=== PATIENT | male | born 1935 | race Caucasian/White ===

== ENCOUNTER 2016-10-19 22:21 | Inpatient (IN) | payer MEDICARE, OTHER ==
[2016-10-19] MEDS ORDERED: SODIUM CHLORIDE 0.9% 500 ML IV STA (23:05)
[2016-10-19] MEDS ORDERED: SODIUM CHLORIDE 0.9% 1,000 ML IV STA (23:05)
[2016-10-19] MEDS ORDERED: ACETAMINOPHEN TAB 500 MG TAB PO STA (23:06)
--- NOTE | 2016-10-19 23:18 | ED ---
General Adult HPI - General Chief complaint: Back Pain/Injury Stated complaint: R Shoulder/Back Pain/SISSY Time Seen by Provider: 10/19/16 23:01 Source: patient, RN notes reviewed Mode of arrival: ambulatory - History of Present Illness Initial comments: Patient 80-year-old male who presents emergency room today with a chief complaint of right-sided back pain. He does admit that symptoms started yesterday. He states this started slowly but has gotten worse today. States is very sharp when he was laying down at home. States worse with deep breath. Patient states that he has had a mild cough. Does not feel that he's been very congested. Noticed that he had a temperature at home of 99F at home. States pain has improved since being here in the emergency room and currently does not want any medication for it. Currently rates pain 12/29. Denies any radiation. Patient denies any other complaints or symptoms at this time. Patient denies any recent fever, chills, chest pain, abdominal pain, nausea or vomiting, numbness or tingling, dysuria or hematuria, constipation or diarrhea, headaches or visual changes, or any other complaints. - Related Data Home Medications Medication Instructions Recorded Confirmed No Known Home Medications [No 10/19/16 10/19/16 Known Home Medications] Allergies Allergy/AdvReac Type Severity Reaction Status Date / Time No Known Allergies Allergy Verified 10/19/16 23:13 Review of Systems ROS Statement: Those systems with pertinent positive or pertinent negative responses have been documented in the HPI. ROS Other: All systems not noted in ROS Statement are negative. Past Medical History Past Medical History: Diabetes Mellitus, Hyperlipidemia, Hypertension, Osteoarthritis (OA), Pneumonia, Renal Disease Additional Past Medical History / Comment(s): bladder cancer, stage 4 kidney failure,exposure to agent orange , head injury January 2015 ladder came down on his head(laceration requiring stitches), cataracts,recent elevated potassium received tx to bring down History of Any Multi-Drug Resistant Organisms: None Reported Past Surgical History: Appendectomy, Hernia Repair, Orthopedic Surgery Additional Past Surgical History / Comment(s): Intravesical therapy for bladder cancer, left shoulder surgery for torn rotator cuff, erinn inguinal hernia,recent lumbar puncture negative for meningitis,Apr cystoscopy with attempted ureter visualization. Past Anesthesia/Blood Transfusion Reactions: No Reported Reaction Past Psychological History: No Psychological Hx Reported, PTSD Additional Psychological History / Comment(s): pt lives at home with ,is independant, retired from the served [employer] and [employer]. Smoking Status: Never smoker Past Alcohol Use History: None Reported Additional Past Alcohol Use History / Comment(s): Patient served in the [employer] and [employer] and serve to terms in [place]. He was exposed to agent orange and also was sent to [facility] to clean up the reactor leak. He has worked on the [employer] in the [place] and also [employer] and is currently retired. He lives with his who is wheelchair bound. There are no pets in the home. Past Drug Use History: None Reported - Past Family History Mother Family Medical History: Diabetes Mellitus, Deep Vein Thrombosis (DVT) Father History Unknown: Yes Additional Family Medical History / Comment(s): age 51 heavy drinker and smoker General Exam - General Exam Comments Initial Comments: General: The patient is awake and alert, in no distress, and does not appear acutely ill. Eye: Pupils are equal, round and reactive to light, extra-ocular movements are intact. No nystagmus. There is normal conjunctiva bilaterally. No signs of icterus. Ears, nose, mouth and throat: There are moist mucous membranes and no oral lesions. Neck: The neck is supple, there is no tenderness or JVD. Cardiovascular: There is a regular rate and rhythm. No murmur, rub or gallop is appreciated. Respiratory: Lungs are clear to auscultation, respirations are non-labored, breath sounds are equal. No wheezes, stridor, rales, or rhonchi. Gastrointestinal: Soft, non-distended, non-tender abdomen without masses or organomegaly noted. There is no rebound or guarding present. No CVA tenderness. Bowel sounds are unremarkable. Musculoskeletal: Normal ROM, no tenderness. Strength 5/5. Sensation intact. Pulses equal bilaterally 2+. Neurological: A&O x 3. CN II-XII intact, There are no obvious motor or sensory deficits. Coordination appears grossly intact. Speech is normal. Skin: Skin is warm and dry and no rashes or lesions are noted. Psychiatric: Cooperative, appropriate mood & affect, normal judgment. Course Vital Signs 10/19/16 22:36 Temperature 101.5 F H Pulse Rate 114 H Respiratory 22 Rate Blood Pressure 158/90 O2 Sat by Pulse 96 Oximetry EKG Findings - EKG Comments: EKG Findings:: EKG performed at00:00: Shows sinus tachycardia with first-degree AV block 101 beats per minute. NH interval 240. QRS 82. QT/QTC 344/446. No acute ST changes. Medical Decision Making - Medical Decision Making Patient labs been reviewed. Does show mildly elevated kidney function. Does have history of kidney disease. Patient's d-dimer elevated 3.6. Patient's chest x-ray reviewed does show evidence for possible pneumonia. Patient be started on antibiotics to cover for pneumonia. Patient given dose of Lovenox here admitted and scheduled for VQ scan in the morning. - Lab Data Result diagrams: 10/19/16 23:43 10/19/16 23:43 Lab Results 10/19/16 10/19/16 10/19/16 Range/Units 23:43 23:43 23:43 WBC 12.0 H (3.8-10.6) k/uL RBC 4.64 (4.30-5.90) m/uL Hgb 14.0 (13.0-17.5) gm/dL Hct 42.8 (39.0-53.0) % MCV 92.2 (80.0-100.0) fL MCH 30.3 (25.0-35.0) pg MCHC 32.8 (31.0-37.0) g/dL RDW 13.8 (11.5-15.5) % Plt Count 182 (150-450) k/uL Neutrophils % 84 % Lymphocytes % 9 % Monocytes % 5 % Eosinophils % 0 % Basophils % 1 % Neutrophils # 10.1 H (1.3-7.7) k/uL Lymphocytes # 1.0 (1.0-4.8) k/uL Monocytes # 0.6 (0-1.0) k/uL Eosinophils # 0.1 (0-0.7) k/uL Basophils # 0.1 (0-0.2) k/uL PT (9.0-12.0) sec INR (<1.1) APTT (22.0-30.0) sec D-Dimer (<0.60) mg/L FEU Sodium 141 (137-145) mmol/L Potassium 4.5 (3.5-5.1) mmol/L Chloride 104 (98-107) mmol/L Carbon Dioxide 23 (22-30) mmol/L Anion Gap 14 mmol/L BUN 47 H (9-20) mg/dL Creatinine 2.28 H (0.66-1.25) mg/dL Est GFR (MDRD) Af Amer 34 (>60 ml/min/1.73 sqM) Est GFR (MDRD) Non-Af 28 (>60 ml/min/1.73 sqM) Glucose 143 H (74-99) mg/dL Calcium 9.7 (8.4-10.2) mg/dL Magnesium 1.7 (1.6-2.3) mg/dL Total Bilirubin 0.7 (0.2-1.3) mg/dL AST 23 (17-59) U/L ALT 24 (21-72) U/L Alkaline Phosphatase 116 (38-126) U/L Total Creatine Kinase 124 (55-170) U/L CK-MB (CK-2) 2.0 (0.0-2.4) ng/mL CK-MB (CK-2) Rel Index 1.6 Troponin I <0.012 (0.000-0.034) ng/mL Total Protein 7.8 (6.3-8.2) g/dL Albumin 4.4 (3.5-5.0) g/dL 10/19/16 Range/Units 23:43 WBC (3.8-10.6) k/uL RBC (4.30-5.90) m/uL Hgb (13.0-17.5) gm/dL Hct (39.0-53.0) % MCV (80.0-100.0) fL MCH (25.0-35.0) pg MCHC (31.0-37.0) g/dL RDW (11.5-15.5) % Plt Count (150-450) k/uL Neutrophils % % Lymphocytes % % Monocytes % % Eosinophils % % Basophils % % Neutrophils # (1.3-7.7) k/uL Lymphocytes # (1.0-4.8) k/uL Monocytes # (0-1.0) k/uL Eosinophils # (0-0.7) k/uL Basophils # (0-0.2) k/uL PT 10.4 (9.0-12.0) sec INR 1.0 (<1.1) APTT 18.2 L (22.0-30.0) sec D-Dimer 3.66 H (<0.60) mg/L FEU Sodium (137-145) mmol/L Potassium (3.5-5.1) mmol/L Chloride (98-107) mmol/L Carbon Dioxide (22-30) mmol/L Anion Gap mmol/L BUN (9-20) mg/dL Creatinine (0.66-1.25) mg/dL Est GFR (MDRD) Af Amer (>60 ml/min/1.73 sqM) Est GFR (MDRD) Non-Af (>60 ml/min/1.73 sqM) Glucose (74-99) mg/dL Calcium (8.4-10.2) mg/dL Magnesium (1.6-2.3) mg/dL Total Bilirubin (0.2-1.3) mg/dL AST (17-59) U/L ALT (21-72) U/L Alkaline Phosphatase (38-126) U/L Total Creatine Kinase (55-170) U/L CK-MB (CK-2) (0.0-2.4) ng/mL CK-MB (CK-2) Rel Index Troponin I (0.000-0.034) ng/mL Total Protein (6.3-8.2) g/dL Albumin (3.5-5.0) g/dL Disposition Clinical Impression: Community acquired pneumonia Disposition: ADMITTED IP TO THIS HOSP Condition: Good Referrals: Jos Ovalle MD [Primary Care Provider] - 1-2 days Time of Disposition: 01:01
[2016-10-19 23:55] LABS: Basophils # (A) 0.1 k/uL (0-0.2); Basophils % (A) 1 %; CH 31.1; CHCM 33.9; Eosinophils # (A) 0.1 k/uL (0-0.7); Eosinophils % (A) 0 %; HCT 42.8 % (39.0-53.0); HDW 2.63; Luc # (Auto) 0.16; Luc % (Auto) 1; Lymphocytes % (A) 9 %; MCH 30.3 pg (25.0-35.0); MCHC 32.8 g/dL (31.0-37.0); MCV 92.2 fL (80.0-100.0); Mean Platelet Volume 7.4; Monocytes # (A) 0.6 k/uL (0-1.0); Monocytes % (A) 5 %; Neutrophils # (A) 10.1 k/uL (1.3-7.7); Neutrophils % (A) 84 %; RBC 4.64 m/uL (4.30-5.90); RDW 13.8 % (11.5-15.5); WBC (Perox) 12.21
--- NOTE | 2016-10-19 23:59 | XR ---
EXAM: XR Chest, 2 Views. CLINICAL HISTORY: Reason: mid thoracic back pain with no injury and SOB increasing over 2 days, also fever and non productive cough TECHNIQUE: Frontal and lateral views of the chest. COMPARISON: Chest radiograph on 04/26/2015 FINDINGS: Hardware: None. Lungs/pleura: Low lung volumes with bibasilar atelectasis. No focal consolidation. No pleural effusion or pneumothorax. Heart/mediastinum: Normal. No cardiomegaly. Soft tissues: Unremarkable. Bones: Degenerative changes of the spine and left acromioclavicular joint. No acute fracture. Upper abdomen: Normal. IMPRESSION: Low lung volumes with favor bibasilar atelectasis. Pneumonia not entirely excluded in the appropriate clinical setting.
[2016-10-20 00:05] LABS: Calcium 9.7 mg/dL (8.4-10.2); Magnesium 1.7 mg/dL (1.6-2.3); Potassium 4.5 mmol/L (3.5-5.1); Total Bilirubin 0.7 mg/dL (0.2-1.3); Total Protein 7.8 g/dL (6.3-8.2)
[2016-10-20 00:21] LABS: Creatine Kinase 124 U/L (55-170)
[2016-10-20 00:26] LABS: Prothrombin Time 10.4 sec (9.0-12.0)
[2016-10-20 00:28] LABS: Partial Thromboplastin Time 18.2 sec (22.0-30.0)
[2016-10-20 00:33] LABS: Troponin I <0.012 ng/mL (0.000-0.034)
[2016-10-20] MEDS ORDERED: AZITHROMYCIN 500 MG in SODIUM CHLORIDE 0.9% 250 ML IVPB STA (01:02)
[2016-10-20] MEDS ORDERED: ENOXAPARIN 80 MG/0.8 ML SYRINGE SQ STA (01:02)
[2016-10-20] MEDS ORDERED: ONDANSETRON 4 MG/2 ML VIAL IVP PRN (01:03)
[2016-10-20] MEDS ORDERED: ACETAMINOPHEN TAB 325 MG TAB PO PRN (01:03)
[2016-10-20] MEDS ORDERED: SODIUM CHLORIDE 0.9% 1,000 ML IV ONE (01:03)
[2016-10-20] MEDS ORDERED: NALOXONE 0.4 MG/ML 1 ML VIAL IV PRN (01:03)
[2016-10-20 04:35] VITALS: BMI 25.8
[2016-10-20 09:03] LABS: Glucose,Whole Blood 131 mg/dL (75-99)
--- NOTE | 2016-10-20 09:12 | NM ---
EXAMINATION TYPE: NM pul vent and perfuse DATE OF EXAM: 10/20/2016 9:01 AM COMPARISON: NONE HISTORY: Elevated d-dimer TECHNIQUE: Utilizing inhalation of 71.5 mCi Tc 99m DTPA aerosol and intravenous injection of 5.4 mCi of Tc 99m MAA, ventilation and perfusion images are acquired post injection in multiple projections. FINDINGS: There are no VQ mismatches. IMPRESSION: THIS EXAMINATION IS LOW PROBABILITY FOR PULMONARY EMBOLUS.
[2016-10-20] MEDS ORDERED: TEMAZEPAM 15 MG CAP PO PRN (10:45)
[2016-10-20] MEDS ORDERED: HYDROmorphone 1 MG/ML 1 ML SYRINGE IVP PRN (10:45)
[2016-10-20] MEDS ORDERED: HYDROcodone/APAP 5-325MG 1 EACH TAB PO PRN (10:45)
--- NOTE | 2016-10-20 11:42 | P.CNPUL ---
History of Present Illness Consult date: 10/20/16 Reason for consult: chest pain, other Chief complaint: Pleurisy History of present illness: 80-year-old male who presents to the emergency department complaining of right- sided chest and back pain. The pain is sharp in nature. It's gotten worse over the last couple of days or so. It is worse with deep breathing body movements coughing sneezing. The patient states that with taking a deep breath , he really feels the pain significantly. Apparently had a low-grade temperature. Chest x-ray my opinion shows low lung volumes probably from not taking a deep breath. No jose infiltrates or consolidation noted. For some reason a VQ scan was done and it was low probability. This likely represents viral pleurisy. Anyway the patient feels a bit better today than he did yesterday. No nausea vomiting or diarrhea. Not coughing. Not bringing up any phlegm. Review of Systems A 12 point review of system is positive for chest pain. It's sharp and pleuritic in nature. His sore throat deep be breathing body movements coughing or sneezing. Also slight temperature. All in all I think this is probably viral pleurisy likely caused by coxsackie B infection. Past Medical History Past Medical History: Diabetes Mellitus, Hyperlipidemia, Hypertension, Osteoarthritis (OA), Pneumonia, Renal Disease Additional Past Medical History / Comment(s): bladder cancer, stage 4 kidney failure,exposure to agent orange , head injury January 2015 ladder came down on his head(laceration requiring stitches), cataracts History of Any Multi-Drug Resistant Organisms: None Reported Past Surgical History: Appendectomy, Hernia Repair, Orthopedic Surgery Additional Past Surgical History / Comment(s): Intravesical therapy for bladder cancer, left shoulder surgery for torn rotator cuff, erinn inguinal hernia,recent lumbar puncture negative for meningitis,Apr cystoscopy with attempted ureter visualization. Past Anesthesia/Blood Transfusion Reactions: No Reported Reaction Past Psychological History: No Psychological Hx Reported, PTSD Additional Psychological History / Comment(s): pt lives at home with ,is independant, retired from the served [employer] and [employer]. Smoking Status: Never smoker Past Alcohol Use History: None Reported Additional Past Alcohol Use History / Comment(s): Patient served in the [employer], [employer] and [employer] and serve to terms in [place]. He was exposed to agent orange and also was [facility]. He has worked on the [email or web address] in the [place] and also [employer] and is currently retired. He lives with his who is wheelchair bound. There are no pets in the home. Past Drug Use History: None Reported - Past Family History Mother Family Medical History: Diabetes Mellitus, Deep Vein Thrombosis (DVT) Father History Unknown: Yes Additional Family Medical History / Comment(s): age 51 heavy drinker and smoker Medications and Allergies Home Medications Medication Instructions Recorded Confirmed Type Atorvastatin [Lipitor] 20 mg PO DAILY 10/20/16 10/20/16 History Lisinopril [Zestril] 10 mg PO DAILY 10/20/16 10/20/16 History glipiZIDE [Glucotrol] 10 mg PO AC-BID 10/20/16 10/20/16 History Allergies Allergy/AdvReac Type Severity Reaction Status Date / Time No Known Allergies Allergy Verified 10/19/16 23:13 Physical Exam Osteopathic Statement: *. No significant issues noted on an osteopathic structural exam other than those noted in the History and Physical/Consult. Vitals: Vital Signs Temp Pulse Pulse Resp BP BP Pulse Ox 10/20/16 07:00 98.7 F 80 16 137/69 95 10/20/16 02:03 96.5 F L 89 16 158/85 96 10/20/16 01:16 99.9 F H 97 18 149/89 94 L Intake and Output 10/19/16 10/20/16 10/20/16 22:59 06:59 14:59 Intake Total 300 Balance 300 Intake: Intake, IV Titration 300 Amount Sodium Chloride 0.9% 1, 300 000 ml @ 50 mls/hr IV . Q20H ONE Rx#:[id number] Other: Voiding Method Toilet # Voids 1 Weight 72.575 kg No acute distress, oriented 3. No respiratory difficulty. HEENT examination is grossly unremarkable. Mucous membranes are moist. No oral lesions. Neck supple. Full range of motion. No adenopathy. Cardiovascular examination reveals regular rhythm rate. S1 and S2 normal. Lungs reveal relatively clear breath sounds. I do not hear a pleural friction rub. He does not really take deep breaths. No adventitious lung sounds noted. Breath sounds are equal bilaterally. Abdomen soft bowel sounds are heard. Extremities are intact. Results - Laboratory Findings CBC and BMP: 10/19/16 23:43 10/19/16 23:43 PT/INR, D-dimer PT 10.4 sec (9.0-12.0) 10/19/16 23:43 INR 1.0 (<1.1) 10/19/16 23:43 D-Dimer 3.66 mg/L FEU (<0.60) H 10/19/16 23:43 Abnormal lab findings: Abnormal Labs 10/20/16 09:01 POC Glucose (mg/dL) 131 H - Diagnostic Findings Chest x-ray: image reviewed (The x-ray labs medications and VQ scan are all reviewed. The patient was evaluated in the history was taken.) Assessment and Plan (1) Viral pleurisy Status: Acute (2) Coxsackie virus infection Status: Acute (3) Fever Status: Acute Plan: Plan The patient likely has a viral pleurisy. Typically this time with the nurse called by a coxsackie B infection. His prodrome including fever and shortness of breath worse with deep breathing coughing sneezing and body movements especially the fact it is pleuritic in nature very sharp as all consistent with this diagnosis. We'll treat with nonsteroidal anti-inflammatory drugs as well as steroids. I do not believe he has a bacterial infection. If he chooses to use antibiotics have go with a short course of oral antibiotics. Additional recommendations suggestions are forthcoming. Prognosis is good. The patient actually could be discharged. No additional recommendations are made. We will follow. Time with Patient: Greater than 30
[2016-10-20 11:47] LABS: Glucose,Whole Blood 130 mg/dL (75-99)
[2016-10-20 12:47] LABS: Hemoglobin A1C 7.4 % (4.2-6.1)
[2016-10-20] MEDS: INSULIN LISPRO (humaLOG) 300 UNIT/3 ML VIAL SQ SCH ×4 (13:02→20:10)
[2016-10-20] MEDS: methylPREDNISolone SOD SUCCI 125 MG/2 ML VIAL IV SCH ×3 (13:02→23:27)
[2016-10-20] MEDS: LEVALBUTEROL NEB 1.25 MG/3 ML AMP INHALATION SCH ×2 (13:04→19:51)
--- NOTE | 2016-10-20 13:32 | CT ---
EXAMINATION TYPE: CT chest wo con DATE OF EXAM: 10/20/2016 12:42 PM COMPARISON: Previous study dated 04/27/2015. HISTORY: Dyspnea CT DLP: 310.2 mGycm Automated exposure control for dose reduction was used. FINDINGS: There is atelectasis and bibasilar airspace disease, worse on the right than the left. There is no significant axillary, mediastinal or hilar adenopathy. The heart is not enlarged. There is minimal dilatation of the aortic root which measures 3.8 cm. The proximal arch measures 3.7 cm. The proximal descending thoracic aorta measures 3.2 cm. At the level of the aortic hiatus at the aorta is normal in size measuring 2.6 cm. Visualized portions of the upper abdomen show no visceral abnormality. There are scattered diverticul a within the colon. There is mild hypertrophic spondylosis within the spine. IMPRESSION: 1. BIBASILAR ATELECTASIS AND AIRSPACE DISEASE, WORSE ON THE RIGHT THAN THE LEFT. 2. THORACIC AORTIC ANEURYSM. 3. UNCOMPLICATED DIVERTICULOSIS OF THE COLON.
[2016-10-20 17:05] LABS: Glucose,Whole Blood 236 mg/dL (75-99)
[2016-10-20] MEDS: glipiZIDE 10 MG TAB PO SCH (17:22)
[2016-10-20 20:09] LABS: Glucose,Whole Blood 259 mg/dL (75-99)
--- NOTE | 2016-10-20 20:52 | HP ---
DATE OF ADMISSION: 10/20/2016 CHIEF COMPLAINT: Right shoulder pain. HISTORY OF PRESENT ILLNESS: This 80-year-old gentleman with a past medical history of multiple medical problems including diabetes, hypertension, hyperlipidemia, DJD, pneumonia, history of bladder cancer stage IV, history of appendectomy, hernia repair, being followed by Dr. Ovalle in the outpatient setting, is complaining of right shoulder pain. The patient also reported the pain is sharp in character, which is increased with respirations occasionally and worse today. The patient came to [facility] and was admitted for further evaluation and treatment. The patient had a chest CT scan done today, which showed bibasilar atelectasis and air space disease, possibly pneumonia, worse on right, and thoracic aortic aneurysm, uncomplicated, and diverticulosis of the colon. There is no history of fevers or rigors. No history of headache, loss of consciousness or seizures. The patient is being evaluated for the same. PAST MEDICAL HISTORY: History of diabetes, hypertension, hyperlipidemia, DJD, history of bladder cancer, history of PTSD. Medications prior to admission include: 1. Glucotrol 10 mg with meals b.i.d. 2. Lipitor 20 mg daily. 3. Zestril 10 mg daily. ALLERGIES: None. FAMILY HISTORY: History of diabetes, history of deep venous thrombosis. SOCIAL HISTORY: No history of smoking, no history of alcohol intake. REVIEW OF SYSTEMS: ENT: Diminishing hearing. Diminished vision. CARDIOVASCULAR: S1 and S2 muffled. GI: As mentioned. : No dysuria. NERVOUS SYSTEM: No deficits. PSYCHIATRY: As mentioned earlier. MUSCULOSKELETAL: As mentioned. HEMATOLOGIC/ONCOLOGIC: As mentioned. DERMATOLOGIC: Negative. PHYSICAL EXAM: At this time the patient is alert and oriented at x3. Pulse 105, blood pressure 140/70, respirations 16, temperature 99.2, pulse 92% on room air. HEENT: Conjunctivae normal. Oral mucosa moist. NECK: No JVD. No carotid bruits. CARDIOVASCULAR: S1 and S2 muffled. LUNGS: Breath sounds are diminished at the bases. Bilateral scattered rhonchi and crackles and expiratory wheezing also heard. Crackles are more on the right side and some pleural rub also heard. ABDOMEN: Soft, nontender. No masses palpable. LEGS: No edema, no swelling, NERVOUS SYSTEM: Higher functions as mentioned. Moves all extremities. LYMPHATICS: No lymph nodes palpable in the neck, axillae or groin. SKIN: No rashes. LABS: WBC 12, D-dimer 3.66. Creatinine is 2.28. Other labs are noted. V/Q scan is low probability. Chest x-ray, bibasilar pneumonia. ASSESSMENT: 1. Bibasilar pneumonia, right more than left, with severe right pleurisy with severe right shoulder pain. 2. Increased WBC. 3. Increased D-dimer without any evidence of pulmonary embolism. 4. Increased creatinine with possible acute on chronic kidney disease. 5. Diabetes mellitus type 2. 6. Hypertension. 7. Hyperlipidemia. 8. History of degenerative joint disease. 9. History of pneumonia, history of bladder cancer. 10. History of stage IV kidney failure. 11. Exposure to agent orange. 12. History of head injury. 13. History of degenerative joint disease. 14. History of intravesical therapy for bladder cancer. 15. History of posttraumatic stress disorder. 16. FULL CODE. RECOMMENDATIONS: This 80-year-old gentleman who presented with multiple complex medical issues, we will monitor the patient closely. Continue the current medications. Continue symptomatic treatment. Otherwise, at this time I would recommend continue with broad-spectrum IV antibiotics, bronchodilators, pulmonary consultation. Also recommend consultation with Nephrology regarding renal failure. Prognosis guarded because of multiple complex medical issues. Discussed with the patient and the family at the bedside. CT scan as noted. Further recommendations to follow.
[2016-10-21] MEDS: AZITHROMYCIN 500 MG in SODIUM CHLORIDE 0.9% 250 ML IVPB SCH (02:18)
[2016-10-21] MEDS: methylPREDNISolone SOD SUCCI 125 MG/2 ML VIAL IV SCH ×2 (05:38→12:11)
[2016-10-21] MEDS: LEVALBUTEROL NEB 1.25 MG/3 ML AMP INHALATION SCH ×3 (07:09→19:16)
[2016-10-21 07:20] LABS: Glucose,Whole Blood 261 mg/dL (75-99)
[2016-10-21] MEDS: glipiZIDE 10 MG TAB PO SCH ×2 (07:55→17:52)
[2016-10-21] MEDS: ATORVASTATIN 20 MG TAB PO SCH (07:55)
[2016-10-21] MEDS: LISINOPRIL 10 MG TAB PO SCH (07:55)
[2016-10-21 07:56] LABS: Basophils % (A) 0 %; CH 30.8; CHCM 33.2; Eosinophils % (A) 0 %; HCT 37.2 % (39.0-53.0); HDW 2.56; HGB 12.3 gm/dL (13.0-17.5); Luc # (Auto) 0.09; Luc % (Auto) 1; Lymphocytes # (A) 1.1 k/uL (1.0-4.8); Lymphocytes % (A) 7 %; MCH 30.7 pg (25.0-35.0); Mean Platelet Volume 6.9; Monocytes # (A) 0.5 k/uL (0-1.0); Monocytes % (A) 3 %; Neutrophils # (A) 13.8 k/uL (1.3-7.7); Neutrophils % (A) 89 %; RDW 13.6 % (11.5-15.5); WBC 15.5 k/uL (3.8-10.6)
[2016-10-21] MEDS: INSULIN LISPRO (humaLOG) 300 UNIT/3 ML VIAL SQ SCH ×4 (07:56→20:03)
[2016-10-21 08:01] LABS: Calcium 8.8 mg/dL (8.4-10.2); Potassium 3.9 mmol/L (3.5-5.1); Total Bilirubin 0.5 mg/dL (0.2-1.3); Total Protein 6.6 g/dL (6.3-8.2)
--- NOTE | 2016-10-21 10:21 | P.NPCON ---
History of Present Illness - Reason for Consult chronic renal failure - History of Present Illness Reason for consultation: Chronic kidney disease stage History of present illness: Patient is a 80-year-old male seen in renal consultation for chronic kidney disease. 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 Creatinine was 2.28 on admission yesterday and is 2.1 today. Patient presented to hospital with dyspnea. He also complained of pleuritic chest pain that started last . He is currently maintained on IV steroids as well as antibiotics and symptoms have significantly improved. He denies any active chest pain or shortness of breath. Denies any vomiting or diarrhea. Appetite is good. Denies use of NSAIDs. Admits to good urine output. No hematuria or dysuria. Denies any headache or dizziness. Hemodynamically stable. He does have a sister who also has chronic kidney disease but is unsure of the etiology. Vital signs are stable. General: The patient appeared well nourished and normally developed. HEENT: Head exam is unremarkable. Neck is without jugular venous distension. LUNGS: Lungs are clear to auscultation and percussion. Breath sounds decreased. HEART: Rate and Rhythm are regular. First and second heart sounds normal. No murmurs, rubs or gallops. ABDOMEN: Abdominal exam reveals normal bowel sounds. Non-tender and non- distended. No evidence of peritonitis. EXTREMITITES: No clubbing, cyanosis, or edema. Past Medical History Past Medical History: Diabetes Mellitus, Hyperlipidemia, Hypertension, Osteoarthritis (OA), Pneumonia, Renal Disease Additional Past Medical History / Comment(s): bladder cancer, stage 4 kidney failure,exposure to agent orange , head injury January 2015 ladder came down on his head(laceration requiring stitches), cataracts History of Any Multi-Drug Resistant Organisms: None Reported Past Surgical History: Appendectomy, Hernia Repair, Orthopedic Surgery Additional Past Surgical History / Comment(s): Intravesical therapy for bladder cancer, left shoulder surgery for torn rotator cuff, erinn inguinal hernia,recent lumbar puncture negative for meningitis,Apr cystoscopy with attempted ureter visualization. 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 Smoking Status: Never smoker Past Alcohol Use History: None Reported Additional Past Alcohol Use History / Comment(s): Patient served in the [employer], [employer] and [employer] and serve to terms in [place]. He was exposed to agent orange and also was sent to [facility] to clean up the reactor leak. He has worked on the [employer] in the [employer] and also [employer] and is currently retired. He lives with his who is wheelchair bound. There are no pets in the home. Past Drug Use History: None Reported - Past Family History Mother Family Medical History: Diabetes Mellitus, Deep Vein Thrombosis (DVT) Father History Unknown: Yes Additional Family Medical History / Comment(s): age 51 heavy drinker and smoker Medications and Allergies Home Medications Medication Instructions Recorded Confirmed Type Atorvastatin [Lipitor] 20 mg PO DAILY 10/20/16 10/20/16 History Lisinopril [Zestril] 10 mg PO DAILY 10/20/16 10/20/16 History glipiZIDE [Glucotrol] 10 mg PO AC-BID 10/20/16 10/20/16 History Allergies Allergy/AdvReac Type Severity Reaction Status Date / Time No Known Allergies Allergy Verified 10/19/16 23:13 Physical Exam Vitals: Vital Signs Temp Pulse Pulse Resp BP Pulse Ox 10/21/16 07:18 84 10/21/16 07:10 84 10/21/16 07:00 97.2 F L 80 16 125/71 92 L 10/21/16 00:00 16 10/20/16 22:41 98.8 F 98 16 133/65 96 10/20/16 20:19 74 10/20/16 19:53 74 10/20/16 15:00 99.3 F 105 H 16 145/72 92 L 10/20/16 13:06 80 Intake and Output 10/20/16 10/21/16 10/21/16 22:59 06:59 14:59 Intake Total 1540 620 Balance 1540 620 Intake: Intake, IV Titration 380 Amount Azithromycin 500 mg In 250 Sodium Chloride 0.9% 250 ml @ 125 mls/hr IVPB Q24H [facility] Rx#:[id number] Sodium Chloride 0.9% 1, 80 000 ml @ 50 mls/hr IV . Q20H [facility] Rx#:[id number] cefTRIAXone 1,000 mg In 50 Sodium Chloride 0.9% 50 ml @ 100 mls/hr IVPB Q24H [facility] Rx#:[id number] Oral 1540 240 Other: Voiding Method Toilet Toilet Toilet # Voids 2 1 Results - Lab Results Most recent lab results Calcium 8.8 mg/dL (8.4-10.2) 10/21/16 07:20 Magnesium 1.7 mg/dL (1.6-2.3) 10/19/16 23:43 10/21/16 07:20 10/21/16 07:20 Assessment and Plan Plan: Assessment: #1. Chronic kidney disease stage IIIB/4 secondary to nephrosclerosis. Baseline creatinine in the range of 2.1-2.3. GFR is at baseline. #2. Dyspnea secondary to viral pleurisy. Improved. #3. Hypertension with chronic kidney disease. Controlled. #4. Type 2 diabetes mellitus. Plan: Continue current treatment. Avoid nephrotoxic agents and hypotensive episodes. He is off IV fluids and oral intake is good. Stable to be discharged home from nephrology standpoint. Thank you for the consultation. I will continue to follow the patient with you during his hospital stay.
--- NOTE | 2016-10-21 11:35 | P.PN ---
Subjective Progress note dated 10/21/2016 80-year-old male who was seen in consultation with right-sided chest pain, which is clearly pleuritic in nature. The patient wished the pain was sharp. It was worse with deep breathing coughing or body movements. It's a bit better today. Chest x-ray shows some atelectasis and/or minimal infiltrate. VQ scan was low probability. Anyway the patient is clinically improved. We did recommend a combination of steroids and nonsteroid anti-inflammatory drugs. Objective - Vital Signs Vital signs: Vital Signs Temp 97.2 F L 10/21/16 07:00 Pulse 84 10/21/16 07:18 Resp 16 10/21/16 07:00 BP 125/71 10/21/16 07:00 Pulse Ox 92 L 10/21/16 07:00 Intake & Output 10/20/16 10/21/16 10/21/16 18:59 06:59 18:59 Intake Total 2160 Balance 2160 Intake: Intake, IV Titration 380 Amount Azithromycin 500 mg In 250 Sodium Chloride 0.9% 250 ml @ 125 mls/hr IVPB Q24H [facility] Rx#:[id number] Sodium Chloride 0.9% 1, 80 000 ml @ 50 mls/hr IV . Q20H [facility] Rx#:[id number] cefTRIAXone 1,000 mg In 50 Sodium Chloride 0.9% 50 ml @ 100 mls/hr IVPB Q24H [facility] Rx#:[id number] Oral 1780 Other: Voiding Method Toilet Toilet Toilet # Voids 2 1 - Exam No acute distress, oriented 3. HEENT examination is grossly unremarkable. Mucous membranes are moist. Neck supple. Full range of motion. No adenopathy. Cardiovascular examination reveals regular rhythm rate. S1 and S2 normal. No S3-S4 or murmur. Lungs are examined. No pleural friction rub. No adventitious lung sounds. No wheezes rhonchi or crackles. Breath sounds are equal bilaterally. Abdomen soft bowel sounds are heard. Extremities are intact. - Labs CBC & Chem 7: 10/21/16 07:20 10/21/16 07:20 Labs: Abnormal Lab Results - Last 24 Hours (Table) 10/20/16 10/20/16 10/20/16 Range/Units 11:38 16:58 19:56 WBC (3.8-10.6) k/uL RBC (4.30-5.90) m/uL Hgb (13.0-17.5) gm/dL Hct (39.0-53.0) % Neutrophils # (1.3-7.7) k/uL Chloride (98-107) mmol/L Carbon Dioxide (22-30) mmol/L BUN (9-20) mg/dL Creatinine (0.66-1.25) mg/dL Glucose (74-99) mg/dL POC Glucose (mg/dL) 130 H 236 H 259 H (75-99) mg/dL ALT (21-72) U/L 10/21/16 10/21/16 10/21/16 Range/Units 07:07 07:20 07:20 WBC 15.5 H (3.8-10.6) k/uL RBC 4.00 L (4.30-5.90) m/uL Hgb 12.3 L (13.0-17.5) gm/dL Hct 37.2 L (39.0-53.0) % Neutrophils # 13.8 H (1.3-7.7) k/uL Chloride 109 H (98-107) mmol/L Carbon Dioxide 21 L (22-30) mmol/L BUN 41 H (9-20) mg/dL Creatinine 2.11 H (0.66-1.25) mg/dL Glucose 250 H (74-99) mg/dL POC Glucose (mg/dL) 261 H (75-99) mg/dL ALT 19 L (21-72) U/L Microbiology - Last 24 Hours (Table) 10/20/16 01:10 Blood Culture - Preliminary Blood No Growth after 24 hours Assessment and Plan (1) Viral pleurisy Status: Acute (2) Coxsackie virus infection Status: Acute (3) Fever Status: Acute Plan: Plan The patient likely has a viral pleurisy. Typically this time with the nurse called by a coxsackie B infection. His prodrome including fever and shortness of breath worse with deep breathing coughing sneezing and body movements especially the fact it is pleuritic in nature very sharp as all consistent with this diagnosis. We'll treat with nonsteroidal anti-inflammatory drugs as well as steroids. I do not believe he has a bacterial infection. If he chooses to use antibiotics have go with a short course of oral antibiotics. Additional recommendations suggestions are forthcoming. Prognosis is good. The patient actually could be discharged. No additional recommendations are made. We will follow. Plan dated 10/21/2016 the patient seemed be doing clinically better. We'll continue to follow. Medications were adjusted yesterday. The pain has significantly improved. No additional recommendations are made. Time with Patient: Less than 30
[2016-10-21 11:43] LABS: Glucose,Whole Blood 298 mg/dL (75-99)
[2016-10-21 17:14] LABS: Glucose,Whole Blood 338 mg/dL (75-99)
--- NOTE | 2016-10-21 17:27 | PN ---
DATE OF SERVICE: 10/21/2016 This 80-year-old gentleman admitted with right posterior back pain, also had possible pneumonia and as well as severe pleurisy. Patient had symptomatic treatment. Patient improved significantly. Patient also had renal failure, which is being closely monitored, creatinine is 2.11 at this time. Multiple consultants are following the patient closely. is still elevated. PAST MEDICAL HISTORY: Reviewed. REVIEW OF SYSTEMS: CARDIOVASCULAR: No angina or palpitation. RESPIRATORY: As mentioned earlier. GI: As mentioned earlier. : No dysuria. NERVOUS SYSTEM: No numbness or weakness. Current medications are reviewed and include: 1. Tylenol 650 q.6. 2. [place] 5 mg q.6. 3. Lipitor 20 mg daily. 4. Azithromycin 500 mg daily. 6. Glucotrol 10 mg daily. 7. Dilaudid. 8. Humalog. 9. Xopenex. 10. Zestril. 11. Solu-Medrol 60 IV q.6. 12. Narcan. 13. Zofran. 14. Restoril. PHYSICAL EXAM: Patient is alert and oriented x3. The pulse is 80, blood pressure 125/71, respirations 16, temperature is 97.2, pulse ox 98% on room air. HEENT: Conjunctivae normal. NECK: No jugular venous distension. CARDIOVASCULAR SYSTEM: S1, S2, muffled. RESPIRATORY: Breath sounds diminished at the bases, scattered rhonchi, no crackles. Abdomen is soft, nontender. EXTREMITIES: Legs no edema, no swelling. NERVOUS SYSTEM: No focal deficits. LABS: Accu-Cheks 250, creatinine is 2.11, WBC is 15.5 and hemoglobin is 12.3. ASSESSMENT: 1. Bibasilar pneumonia, right more than left with severe right pleurisy with right shoulder pain. 2. Increased WBC. 3. Increased d-dimer without any evidence of pulmonary embolism. 4. Increased arielle with possibly acute on chronic kidney disease. 5. Diabetes mellitus type 2. 6. Hypertension, essential. 7. Hyperlipidemia. 8. History of degenerative joint disease. 9. History of pneumonia. 10. History of bladder cancer. 11. History of stage IV kidney failure. 12. Exposure to agent orange. 13. History of head injury. 14. History of degenerative joint disease. 15. History of intravascular therapy for BCG with bladder cancer. 16. History of posttraumatic stress disorder. 17. FULL CODE. RECOMMENDATION: In this 80-year-old gentleman who presented with multiple complex medical issues, will monitor the patient closely. Continue with the current medications. Continue with the symptomatic treatment. Otherwise, continue with intensive bronchodilators. Increase ambulation. Guarded prognosis. Further recommendations to follow. Closely follow with Dr. Basilio. ROMINA
[2016-10-21] MEDS: methylPREDNISolone SOD SUCCI 40 MG/ML 1 ML VIAL IV SCH ×2 (17:52→23:57)
[2016-10-21 20:00] LABS: Glucose,Whole Blood 371 mg/dL (75-99)
[2016-10-21 22:45] LABS: Glucose,Whole Blood 411 mg/dL (75-99)
[2016-10-21] MEDS ORDERED: INSULIN REGULAR 100 UNIT/ML VIAL IV ONE (23:06)
[2016-10-21] MEDS ORDERED: INSULIN DETEMIR 100 UNIT/ML 10 ML VIAL SQ STA (23:12)
[2016-10-21] MEDS ORDERED: INSULIN REGULAR 100 UNIT/ML VIAL SQ ONE (23:14)
[2016-10-21 23:55] LABS: Appearance,Urine Clear (Clear); Bilirubin,Urine Negative (Negative); Glucose,Urine (UA) 4+ (Negative); Ketones,Urine Negative (Negative); Leukocyte Esterase,Urine Negative (Negative); Mucus,Urine Rare /hpf; Nitrite,Urine Negative (Negative); Particle Count 1286; Protein,Urine Trace (Negative); Specific Gravity,Urine 1.016 (1.001-1.035); UA Billing (MACRO vs. MICRO) MICRO; Urobilinogen,Urine <2.0 mg/dL (<2.0); WBC,Urine <1 /hpf (0-5)
[2016-10-22 01:02] VITALS: RESP 16
[2016-10-22] MEDS: AZITHROMYCIN 500 MG in SODIUM CHLORIDE 0.9% 250 ML IVPB SCH (02:43)
[2016-10-22 02:49] LABS: Glucose,Whole Blood 285 mg/dL (75-99)
[2016-10-22] MEDS: LEVALBUTEROL NEB 1.25 MG/3 ML AMP INHALATION SCH (07:38)
[2016-10-22 07:42] LABS: Glucose,Whole Blood 228 mg/dL (75-99)
[2016-10-22 07:45] VITALS: BP 123/68; TEMP 97.6
[2016-10-22 07:52] VITALS: PULSE 80
[2016-10-22 07:59] LABS: Calcium 8.9 mg/dL (8.4-10.2); Potassium 4.2 mmol/L (3.5-5.1)
[2016-10-22] MEDS: methylPREDNISolone SOD SUCCI 40 MG/ML 1 ML VIAL IV SCH (08:35)
[2016-10-22] MEDS: glipiZIDE 10 MG TAB PO SCH (08:35)
[2016-10-22] MEDS: ATORVASTATIN 20 MG TAB PO SCH (08:35)
[2016-10-22] MEDS: LISINOPRIL 10 MG TAB PO SCH (08:35)
[2016-10-22] MEDS: INSULIN LISPRO (humaLOG) 300 UNIT/3 ML VIAL SQ SCH (08:35)
--- NOTE | 2016-10-22 09:53 | PN ---
Patient is seen for followup for chronic kidney disease. He has had issues with significant hyperglycemia which is better controlled now. This is mainly from steroids. Patient is currently maintained on steroids for pleuritic chest pain. He states that he is feeling better and wants to go home. On examination, blood pressure is 123/68, heart rate 74 per minute. He is afebrile. Examination of the heart, S1 and S2. Examination of the lungs, bilateral breath sounds are heard. Abdomen is soft, nontender. Examination of lower extremities shows no evidence of edema. STONEMASON exam is grossly intact. Labs show sodium 145, potassium 4.2, serum creatinine 1.92. ASSESSMENT: 1. Chronic kidney disease, renal function not far from baseline. Patient is maintained on MARIELOS inhibitors which we will continue. 2. Pleuritic chest pain, maintained on antibiotics and steroids. 3. Hyperglycemia from steroids, currently better controlled. 4. Chronic kidney disease stage IV with baseline creatinine around 2 mg/dL secondary to nephrosclerosis, currently stable. PLAN: Try to wean down steroids. Patient is stable for discharge from nephrology standpoint.
[2016-10-22 11:55] LABS: Glucose,Whole Blood 218 mg/dL (75-99)
--- NOTE | 2016-10-23 10:19 | DS ---
DATE OF ADMISSION: 10/20/2016 DATE OF DISCHARGE: 10/22/2016 FINAL DIAGNOSES: 1. Acute bibasilar pneumonia, right more than left with possibly gram-negative severe right pleurisy with right shoulder pain. 2. Increased WBC. 3. Increased d-dimer without any evidence of pulmonary embolism. 4. History of acute on chronic kidney disease with kidney disease stage IV, baseline. 5. Diabetes mellitus type 2. 6. Hypertension, essential. 7. Hyperlipidemia. 8. History of degenerative joint disease. 9. History of pneumonia. 10. History of bladder cancer. 11. History of stage IV kidney failure. 12. Exposure to agent orange. 13. History of head injury. 14. History of degenerative joint disease. 15. History of intravascular therapy with BCG for bladder cancer. 16. History of posttraumatic stress disorder. 17. FULL CODE. DISCHARGE DISPOSITION: Patient will be discharged in a stable condition with guarded prognosis. HISTORY OF PRESENT ILLNESS: This 80-year-old gentleman with a past medical history of multiple medical problems being followed by Dr. Ovalle in the outpatient setting, admitted with severe back pain and possible features of bibasilar pneumonia. Patient was treated with empiric antibiotics, bronchodilators and as well as steroids. Patient improved significantly. Dr. Basilio saw the patient. Patient also had renal failure evaluated by Dr. Piña. Recommend outpatient followup. On exam, vitals are stable. CARDIOVASCULAR SYSTEM: S1, S2, muffled. ABDOMEN: Soft. NERVOUS SYSTEM: No focal deficit. CAT scan of the chest was reviewed and the patient will be discharged in a stable condition with guarded prognosis. Diet is cardiac, activity limited until followup. Followup with Dr. Ovalle in 2 to 3 days. Follow up with Dr. Messer and Dr. Basilio as advised. Creatinine is 1.9. Discharge advice and medications are continuing as follows: 1. ProAir HFA 2 puffs q.i.d. and p.r.n. 2. Lipitor 20 mg daily. 3. Zithromax 500 mg daily. 4. Symbicort 160/4.5 two puffs b.i.d. 5. Ceftin 500 mg p.o. b.i.d. for 5 days. 6. Zestril 10 mg p.o. daily. 7. Glucotrol 10 mg a.c. b.i.d. 8. Prednisone taper that will be a 40 mg daily for 3 days, 30 for 3 days, 20 for 3 days, 10 for 3 days and then discontinue. 9. [place] 5 mg p.o. q.6 p.r.n. for pain. 10. Tylenol 500 mg q.6 p.r.n. for regular pain. Once again, the patient will be discharged in a stable condition with guarded prognosis. CBC, BMP with Dr. Ovalle.
== END 2016-10-22 12:20 | disposition home or self-care (01) | DRG 178 ==
LOC: EC 22:21 → 5MS5E 10-20 00:55 → 5ONC 10-22 00:03
PROVIDERS: ADMIT Hospitalist; ATTEND Hospitalist
DX: J15.6 Pneumonia due to other Gram-negative bacteria (principal); N17.9 Acute kidney failure, unspecified; N18.4 Chronic kidney disease, stage 4 (severe); J98.11 Atelectasis; E11.22 Type 2 diabetes mellitus with diabetic chronic kidney disease; E11.65 Type 2 diabetes mellitus with hyperglycemia; I71.2 Thoracic aortic aneurysm, without rupture; R09.1 Pleurisy; B34.1 Enterovirus infection, unspecified; E78.5 Hyperlipidemia, unspecified; F43.10 Post-traumatic stress disorder, unspecified; M19.91 Primary osteoarthritis, unspecified site; I12.9 Hypertensive chronic kidney disease with stage 1 through stage 4 chronic kidney disease, or unspecified chronic kidney disease; T38.0X5A Adverse effect of glucocorticoids and synthetic analogues, initial encounter; Z87.828 Personal history of other (healed) physical injury and trauma; K57.30 Diverticulosis of large intestine without perforation or abscess without bleeding; Z87.01 Personal history of pneumonia (recurrent); Z90.49 Acquired absence of other specified parts of digestive tract; Z57.5 Occupational exposure to toxic agents in other industries; Z85.51 Personal history of malignant neoplasm of bladder; Z79.84 Long term (current) use of oral hypoglycemic drugs; Z79.899 Other long term (current) drug therapy
CPT/HCPCS: 36415; 71020; 71250; 78582; 80048; 80053; 81001; 82550; 82553; 83036; 83735; 84484; 85025; 85379; 85610; 85730; 87040; 93005; 94640; 96360; 96361; 99285

== ENCOUNTER → 2018-12-01 | Outpatient (CLI) | payer MEDICARE, OTHER ==
--- NOTE | 2018-12-01 09:41 | CT ---
EXAMINATION TYPE: CT brain wo con DATE OF EXAM: 12/01/2018 COMPARISON: None HISTORY: dizziness CT DLP: 999.8 mGycm Automated exposure control for dose reduction was used. Helical imaging through the brain FINDINGS: There is no hemorrhage or hydrocephalus present. Cortical atrophy is likely age-related. Periventricu lar white matter low-attenuation is present, no mass effect. Calvarium is intact. Paranasal sinuses a nd mastoid air cells are within normal limits. IMPRESSION: AGE-RELATED CHANGES OF ATROPHY AND PROBABLE CHRONIC SMALL VESSEL ISCHEMIA.
--- NOTE | 2018-12-01 11:36 | ECHOF ---
Referral Reason:R42 dizziness MEASUREMENTS -------- HEIGHT: 167.6 cm WEIGHT: 70.3 kg BP: 126/72 RVIDd: 3.3 cm (< 3.3) IVSd: 1.3 cm (0.6 - 1.1) LVIDd: 3.4 cm (3.9 - 5.3) LVPWd: 1.2 cm (0.6 - 1.1) IVSs: 1.5 cm LVIDs: 2.4 cm LVPWs: 1.5 cm LA Diam: 2.9 cm (2.7 - 3.8) LAESV Index (A-L): 31.20 ml/m Ao Diam: 3.1 cm (2.0 - 3.7) AV Cusp: 2.1 cm (1.5 - 2.6) EPSS: 0.2 cm MV E Erik: 0.59 m/s MV DecT: 249 ms MV A Erik: 0.86 m/s MV E/A Ratio: 0.68 AV maxP.53 mmHg AV meanP.32 mmHg RAP: 5.00 mmHg RVSP: 30.10 mmHg MV EF SLOPE: 7.86 mm/s (70 - 150) MV EXCURSION: 1.44 cm (> 18.000) FINDINGS -------- Sinus rhythm. Suboptimal image quality - poor subcostal views. The left ventricular size is normal. There is mild concentric left ventricular hypertrophy. Overa ll left ventricular systolic function is normal with, an EF between 60 - 65 %. The right ventricle is mildly enlarged. LA is midly dilated 29-33ml/m2. The right atrium is normal in size. Aortic valve is trileaflet and is mildly thickened. Peak/mean gradient across the Aortic Valve is 7 .53mmHg / 3.32mmHg. AOV area by planimetry 1.8 cm The mitral valve leaflets are mildly thickened. Mild mitral annular calcification present. Mild m itral regurgitation is present. Mild tricuspid regurgitation present. Right ventricular systolic pressure is normal at < 35 mmHg. Trace/mild (physiologic) pulmonic regurgitation. The aortic root size is normal. IVC Not well visulized. There is no pericardial effusion. CONCLUSIONS -------- 1. Sinus rhythm. 2. Suboptimal image quality - poor subcostal views. 3. The left ventricular size is normal. 4. There is mild concentric left ventricular hypertrophy. 5. Overall left ventricular systolic function is normal with, an EF between 60 - 65 %. 6. The right ventricle is mildly enlarged. 7. LA is midly dilated 29-33ml/m2. 8. The right atrium is normal in size. 9. Aortic valve is trileaflet and is mildly thickened. 10. Peak/mean gradient across the Aortic Valve is 7.53mmHg / 3.32mmHg. 11. AOV area by planimetry 1.8 cm 12. The mitral valve leaflets are mildly thickened. 13. Mild mitral annular calcification present. 14. Mild mitral regurgitation is present. 15. Mild tricuspid regurgitation present. 16. Right ventricular systolic pressure is normal at < 35 mmHg. 17. Trace/mild (physiologic) pulmonic regurgitation. 18. The aortic root size is normal. 19. IVC Not well visulized. 20. There is no pericardial effusion. WALL COVERING INSTALLER: MIRNA Gaona
== END | disposition home or self-care (01) ==
LOC: RADECHMAIN 07:57
PROVIDERS: ATTEND Family Medicine
DX: G31.1 Senile degeneration of brain, not elsewhere classified (principal); I08.3 Combined rheumatic disorders of mitral, aortic and tricuspid valves
CPT/HCPCS: 70450; 93306

== ENCOUNTER 2021-12-22 06:21 | Day surgery (SDC) | payer MEDICARE, OTHER ==
[2021-12-21 11:22] VITALS: BMI 24.2
[~2021-12-22 06:21] MED LIST: LACTATED RINGERS 1,000 ML IV SCH
[2021-12-22 06:59] LABS: Glucose,Whole Blood 101 mg/dL (75-99)
[2021-12-22 07:01] VITALS: RESP 16; TEMP 97.3
[2021-12-22] MEDS ORDERED: LIDOCAINE 2% INJ 20 MG/ML (2 ML VIAL) ONE (07:20)
[2021-12-22] MEDS ORDERED: PROPOFOL 10 MG/ML 20 ML VIAL IV ONE (07:20)
--- NOTE | 2021-12-22 07:57 | P.PCN ---
Date of Procedure: 12/22/21 Procedure(s) Performed: Brief history: Patient is a pleasant 82-year-old white male scheduled for an elective upper endoscopy as well as colonoscopy as a part of evaluation of intermittent dysphagia to solids and prior history of colon polyps. Procedure performed: Esophagogastroduodenoscopy Colonoscopy with snare polypectomy Preoperative diagnosis: Intermittent dysphagia to solids History of colon polyps Anesthesia: MAC Procedure: After informed consent was obtained from the patient was brought into the endoscopy unit and IV sedation was administered by anesthesia under continuous monitoring. Initially upper endoscopy was done. The Olympus GF 160 video endoscope was inserted inserted into the mouth and esophagus intubated without any difficulty and was gradually advanced into the stomach and duodenum and carefully examined. The bulb and second part of the duodenum appeared normal. The scope was then withdrawn into the stomach adequately insufflated with air and upon careful examination the antrum and body, cardia and fundus appeared normal. The scope was then withdrawn into the esophagus. The GE junction was located at 40 cm to the incisors. All sliding type hiatal hernia noted. It appeared regular with no erythema erosions or ulcerations. Rest of the esophagus appeared normal. Patient tolerated the procedure well. At this time the patient continued to remain sedation. Initial digital rectal examination was normal. Olympus CF 160 video colonoscope was then inserted into the rectum and gradually advanced to the cecum without any difficulty. Careful examination was performed as the scope was gradually being withdrawn. The prep was excellent. The cecum, ascending colon, transverse colon, descending colon, sigmoid colon and rectum appeared normal. In the proximal rectum there was a 7 mm polyp removed by snare polypectomy. Scattered sigmoid diverticulosis seen. Retroflexion was performed in the rectum and no lesions were noted. Patient tolerated the procedure well. Impression: 1. Upper Endoscopy revealed small hiatal hernia but no evidence of esophagitis or esophageal stricture 2. Colonoscopy revealed scattered sigmoid diverticulosis and a 7 mm proximal rectal polyp status post polypectomy Recommendations: Findings of this examination were discussed with the patient as well as his family. He was advised to follow with the biopsy results. Continue with a high-fiber diet and take Supplements a regular basis
[2021-12-22 08:29] VITALS: BP 116/71; PULSE 56
== END 2021-12-22 08:48 | disposition home or self-care (01) ==
LOC: ORWHC2ENDO 06:21
PROVIDERS: ATTEND Internal Medicine Gastroenterology
DX: D12.8 Benign neoplasm of rectum (principal); K44.9 Diaphragmatic hernia without obstruction or gangrene; K57.30 Diverticulosis of large intestine without perforation or abscess without bleeding; E11.9 Type 2 diabetes mellitus without complications; N40.0 Benign prostatic hyperplasia without lower urinary tract symptoms; Z85.51 Personal history of malignant neoplasm of bladder; F32.A Depression, unspecified; Z79.899 Other long term (current) drug therapy; Z79.84 Long term (current) use of oral hypoglycemic drugs; Z90.49 Acquired absence of other specified parts of digestive tract; Z79.82 Long term (current) use of aspirin
CPT/HCPCS: 88305; 45385; 43235; J2704; J2001

== ENCOUNTER 2023-08-27 15:27 | Emergency (ER) | payer MEDICARE, OTHER ==
[2023-08-27 16:01] VITALS: BP 144/84; PULSE 68; RESP 18; TEMP 97.8
--- NOTE | 2023-08-27 16:26 | ED ---
General Adult HPI - General Chief complaint: Extremity Injury, Upper Stated complaint: Swollen and bruised left arm Time Seen by Provider: 08/27/23 16:05 Source: patient, RN notes reviewed Mode of arrival: ambulatory Limitations: no limitations - History of Present Illness Initial comments: 87-year-old male presents to the emergency department for evaluation of bruising to his left forearm. He denies any known trauma. Patient states that he may have hit it in the middle of the night. He reports that it started as a smaller bruise close to his elbow on Saturday but has since worsened. He denies any pain to the area even with palpation. He is not on blood thinners currently. Does report taking a baby aspirin daily. Denies any other associated symptoms. Denies chest pain, shortness of breath. - Related Data Home Medications Medication Instructions Recorded Confirmed glipiZIDE [Glucotrol] 10 mg PO HS 10/20/16 12/22/21 lisinopriL [Zestril] 10 mg PO BID 10/20/16 12/22/21 Aspirin [Adult Low Dose Aspirin EC] 81 mg PO DAILY 12/21/21 12/22/21 Dapagliflozin Propanediol [Farxiga] 10 mg PO QAM 12/21/21 12/22/21 Escitalopram [Lexapro] 5 mg PO HS 12/21/21 12/22/21 Lovastatin [Mevacor] 20 mg PO HS 12/21/21 12/22/21 Semaglutide [Rybelsus] 7 mg PO QAM 12/21/21 12/22/21 Tamsulosin [Flomax] 0.4 mg PO DAILY 12/21/21 12/22/21 Allergies Allergy/AdvReac Type Severity Reaction Status Date / Time No Known Allergies Allergy Verified 12/22/21 06:45 Review of Systems ROS Statement: Those systems with pertinent positive or pertinent negative responses have been documented in the HPI. ROS Other: All systems not noted in ROS Statement are negative. Past Medical History Past Medical History: Cancer, Diabetes Mellitus, Hyperlipidemia, Hypertension, Osteoarthritis (OA), Pneumonia, Prostate Disorder, Renal Disease Additional Past Medical History / Comment(s): bladder cancer, stage 4 kidney failure,exposure to agent orange , head injury January 2015 ladder came down on his head(laceration requiring stitches), cataracts, hemorrhoids/blood in stool, History of Any Multi-Drug Resistant Organisms: None Reported Past Surgical History: Appendectomy, Hernia Repair, Orthopedic Surgery Additional Past Surgical History / Comment(s): Intravesical therapy for bladder cancer, left shoulder surgery for torn rotator cuff, erinn inguinal hernia, lumbar puncture, cystoscopy with attempted ureter visualization. Past Anesthesia/Blood Transfusion Reactions: Motion Sickness Past Psychological History: PTSD Smoking Status: Never smoker - Past Family History Son(s) Family Medical History: Cancer Mother Family Medical History: Deep Vein Thrombosis (DVT) Father History Unknown: Yes Additional Family Medical History / Comment(s): age 51 heavy drinker and smoker General Exam Limitations: no limitations General appearance: alert, in no apparent distress Head exam: Present: atraumatic, normocephalic, normal inspection Eye exam: Present: normal appearance, PERRL, EOMI. Absent: scleral icterus, conjunctival injection, periorbital swelling ENT exam: Present: normal exam, mucous membranes moist Respiratory exam: Present: normal lung sounds bilaterally. Absent: respiratory distress, wheezes, rales, rhonchi, stridor Cardiovascular Exam: Present: regular rate, normal rhythm, normal heart sounds. Absent: systolic murmur, diastolic murmur, rubs, gallop, clicks Extremities exam: Present: normal inspection, full ROM, normal capillary refill, other (Radial pulses 2+, ecchymosis to the left medial forearm from the elbow to the wrist, not tender to palpation.). Absent: tenderness, pedal edema, joint swelling, calf tenderness Neurological exam: Present: alert, oriented X3 Psychiatric exam: Present: normal affect, normal mood Skin exam: Present: warm, dry, intact, other (Ecchymosis to the left medial forearm from the elbow). Absent: normal color Course Vital Signs 08/27/23 15:45 Temperature 97.8 F Pulse Rate 68 Respiratory 18 Rate Blood Pressure 144/84 O2 Sat by Pulse 97 Oximetry Medical Decision Making - Medical Decision Making Was pt. sent in by a medical professional or institution (, PA, [employer], urgent care, hospital, or long term...) When possible be specific @ -No Did you speak to anyone other than the patient for history (EMS, parent, family, police, friend...)? What history was obtained from this source @ -No Did you review nursing and triage notes (agree or disagree)? Why? @ -I reviewed and agree with nursing and triage notes Were old charts reviewed (outside hosp., previous admission, EMS record, old EKG, old radiological studies, urgent care reports/EKG's, long term records)? Report findings @ -No old charts were reviewed Differential Diagnosis (chest pain, altered mental status, abdominal pain women, abdominal pain men, vaginal bleeding, weakness, fever, dyspnea, syncope, headache, dizziness, GI bleed, back pain, seizure, CVA, palpatations, mental health, musculoskeletal)? @ -Differential Musculoskeletal Muscular strain, contusion, ligament sprain, fracture, arthritis, septic arth ritis, bursitis, cellulitis, muscle spasm, nerve compression, DVT, arterial occlusion, herpes zoster, electrolyte abnormality, tumor.... This is not meant to be in all inclusive list EKG interpreted by me (3pts min.). @ -None X-rays interpreted by me (1pt min.). @ -None done CT interpreted by me (1pt min.). @ -None done U/S interpreted by me (1pt. min.). @ -None done What testing was considered but not performed or refused? (CT, X-rays, U/S, labs)? Why? @ -None What meds were considered but not given or refused? Why? @ -None Did you discuss the management of the patient with other professionals (professionals i.e. , PA, [employer], lab, RT, psych nurse, psychologist social, 3rd pressman, teacher, guest relations officer, case repairer)? Give summary @ -No Was smoking cessation discussed for >3mins.? @ -No Was critical care preformed (if so, how long)? @ -No Were there social determinants of health that impacted care today? How? (Homelessness, low income, unemployed, alcoholism, drug addiction, transport ation, low edu. Level, literacy, decrease access to med. care, alf, rehab)? @ -No Was there de-escalation of care discussed even if they declined (Discuss DNR or withdrawal of care, Hospice)? DNR status @ -No What co-morbidities impacted this encounter? (DM, HTN, Smoking, COPD, CAD, Cancer, CVA, ARF, Chemo, Hep., AIDS, mental health diagnosis, sleep apnea, morbid obesity)? @ -None Was patient admitted / discharged? Hospital course, mention meds given and route, prescriptions, significant lab abnormalities, going to OR and other pertinent info. @ -Discharge. Patient presented to the emergency department for evaluation of bruising to his left forearm. He states that he does not know of any trauma. The area is not painful. He has not on blood thinners but does report taking a baby aspirin daily. Patient appears to have ecchymosis from just distal to the elbow to proximal to the wrist on the medial aspect of the left forearm. This is not tender to palpation. He denies any associated symptoms. Discussed return precautions including continuation of worsening bruising and development of pain. Patient understanding agreeable with plan. Patient stable at time of discharge. Case discussed with Dr. Victoria Undiagnosed new problem with uncertain prognosis? @ -No Drug Therapy requiring intensive monitoring for toxicity (Heparin, Nitro, Insulin, Cardizem)? @ -No Were any procedures done? @ -No Diagnosis/symptom? @ -Ecchymosis to left forearm Acute, or Chronic, or Acute on Chronic? @ -Acute Uncomplicated (without systemic symptoms) or Complicated (systemic symptoms)? @ -Gated Side effects of treatment? @ -No Exacerbation, Progression, or Severe Exacerbation? @ -No Poses a threat to life or bodily function? How? (Chest pain, USA, CT, pneumonia, PE, COPD, DKA, ARF, appy, cholecystitis, CVA, Diverticulitis, Homicidal, Suicidal, threat to staff... and all critical care pts) @ -No Disposition Clinical Impression: Ecchymosis of forearm Disposition: HOME SELF-CARE Condition: Stable Instructions (If sedation given, give patient instructions): Ecchymosis (ED) Additional Instructions: Please follow up with your primary care provider. Return to the emergency department if you develop pain, worsening discoloration, or any new symptoms. Is patient prescribed a controlled substance at d/c from ED?: No Referrals: Marilin Lucero MD [Primary Care Provider] - 1-2 days
== END 2023-08-27 16:38 | disposition home or self-care (01) ==
LOC: EC 15:27
DX: S50.12XA Contusion of left forearm, initial encounter (principal); E11.9 Type 2 diabetes mellitus without complications; E78.5 Hyperlipidemia, unspecified; I12.9 Hypertensive chronic kidney disease with stage 1 through stage 4 chronic kidney disease, or unspecified chronic kidney disease; N18.4 Chronic kidney disease, stage 4 (severe); Z79.84 Long term (current) use of oral hypoglycemic drugs; Z79.82 Long term (current) use of aspirin; Z79.899 Other long term (current) drug therapy; W22.8XXA Striking against or struck by other objects, initial encounter
CPT/HCPCS: 99283